=== PATIENT | male | born 1985 | race Asian ===

== ENCOUNTER 2020-04-22 23:48 | Emergency (ER) | payer OTHER ==
[~2020-04-22] VITALS: Ht 188 cm; Wt 68.0 kg
[2020-04-23 00:12] LABS: ABSOLUTE BASOPHILS 0.1 thou/uL (0.0-0.2); ABSOLUTE EOSINOPHILS 0.2 thou/uL (0.0-0.7); ABSOLUTE LYMPHOCYTES 2.4 thou/uL (0.8-5.3); ABSOLUTE MONOCYTES 0.7 thou/uL (0.0-1.2); ABSOLUTE NEUTROPHILS 10.6 thou/uL (1.6-8.1); BASOPHILS 0.4 %; EOSINOPHILS 1.2 %; HEMATOCRIT 38.6 % (42.0-52.0); HEMOGLOBIN 12.8 gm/dL (14.0-18.0); LYMPHOCYTES 17.4 %; MCHC 33.1 g/dL (28.0-37.0); MCV 87.6 fL (80.0-100.0); MONOCYTES 4.7 %; MPV 9.9 fl. (7.2-11.1); NUCLEATED RBCS 0 /100WBC; PLATELET COUNT* 246 thou/uL (150-400); POLYS 76.3 %; RDW-CV 13.5 % (10.5-14.5); WBC 13.9 thou/uL (4.0-11.0)
[2020-04-23 00:16] LABS: CALCIUM 9.1 mg/dL (8.5-10.1); CREATININE 0.7 mg/dL (0.6-1.3); POTASSIUM 3.4 mmol/L (3.5-5.1)
[2020-04-23 00:27] LABS: MAGNESIUM 1.9 mg/dL (1.8-2.4); TOTAL BILIRUBIN 0.3 mg/dL (<0.1-1.0); TOTAL PROTEIN 8.8 g/dL (6.4-8.2)
[2020-04-23] MEDS ORDERED: ZPAK PO (01:20)
[2020-04-23 01:33] VITALS: BP 158/90
--- NOTE | 2020-04-23 16:13 | EKG ---
[place] [address] ELECTROCARDIOGRAM REPORT Name: RUT DESIR Room: [facility]#: [id number] Admission: 04/22/20 Attend Phys: Discharge: 04/23/20 Date of : 85 Date of Service: 04/22/20 2353 Report #: [id number] THIS REPORT FOR: //name// [facility] ED Test Date: 2020-04-22 Test Time: 23:53:10 Pat Name: RUT DESIR Department: Room: Gender: Training Personnel Supervisor: : 1985 Requested By: John Mariee Order Number: [id number] MD: Keyur Koehler Measurements Intervals [place] Rate: 97 P: 74 CT: 158 QRS: 58 QRSD: 100 T: 45 QT: 327 QTc: 416 Interpretive Statements Sinus rhythm Probable left ventricular hypertrophy ST elev, probable normal early repol pattern Baseline wander in lead(s) II,V6 No previous ECG available for comparison Electronically Signed On 04-23-2020 16:11:51 CDT by Keyur Koehler [email or web address] <ELECTRONICALLY SIGNED> By: Keyur Koehler MD, [facility] 04/23/20 1611 2353 [id number] Keyur Koehler MD, [facility] /EPI
== END 2020-04-23 01:34 | disposition home or self-care (01) ==
LOC: M.ERS 23:48
PROVIDERS: Emergency Medicine Emergency Medical Services
DX: J18.9 Pneumonia, unspecified organism (principal); I10 Essential (primary) hypertension

== ENCOUNTER 2020-09-17 19:33 | Emergency (ER) | payer OTHER ==
[~2020-09-17] VITALS: Ht 188 cm; Wt 77.1 kg
[~2020-09-17 19:33] MED LIST: ZPAK PO
[2020-09-17 19:43] LABS: URINE BILIRUBIN NEGATIVE (Negative); URINE BLOOD 3+ (Negative); URINE COLOR YELLOW; URINE GLUCOSE-RANDOM NEGATIVE (Negative); URINE KETONES NEGATIVE (Negative); URINE LEUKOCYTES-REFLEX NEGATIVE (Negative); URINE NITRITE-REFLEX NEGATIVE (Negative); URINE PROTEIN NEGATIVE (Negative); URINE SPECIFIC GRAVITY 1.025 (1.005-1.030); URINE UROBILINOGEN 0.2 E.U./dl (0.2-1.0)
[2020-09-17 19:44] LABS: URINE CLARITY HAZY
[2020-09-17 19:50] LABS: SQUAMOUS 0-3 Few /LPF (0-3); URINE RBC >20 Many /HPF (0-2); URINE WBC-REFLEX None Seen /HPF (0-5)
[2020-09-17 19:51] LABS: AMP/METHAMP Negative (Negative); BACTERIA-REFLEX None Seen /HPF (None Seen); BARBITURATES Negative (Negative); BENZODIAZEPINES Negative (Negative); CASTS None Seen /LPF (None Seen); COCAINE Negative (Negative); CRYSTALS None Seen /LPF (None Seen); METHADONE Negative (Negative); OPIATES POSITIVE (Negative); PCP Negative (Negative); THC Negative (Negative)
[2020-09-17 19:57] LABS: ABSOLUTE EOSINOPHILS 0.2 thou/uL (0.0-0.7); ABSOLUTE LYMPHOCYTES 2.4 thou/uL (0.8-5.3); ABSOLUTE MONOCYTES 0.8 thou/uL (0.0-1.2); ABSOLUTE NEUTROPHILS 9.1 thou/uL (1.6-8.1); BASOPHILS 0.2 %; EOSINOPHILS 1.8 %; HEMATOCRIT 40.2 % (42.0-52.0); LYMPHOCYTES 19.2 %; MCH 28.3 pg (26.0-34.0); MCHC 32.4 g/dL (28.0-37.0); MCV 87.2 fL (80.0-100.0); MONOCYTES 6.5 %; MPV 9.1 fl. (7.2-11.1); NUCLEATED RBCS 0 /100WBC; PLATELET COUNT* 251 thou/uL (150-400); POLYS 72.3 %; RBC 4.61 mil/uL (4.50-6.00); RDW-CV 13.7 % (10.5-14.5); WBC 12.6 thou/uL (4.0-11.0)
[2020-09-17 20:02] LABS: CALCIUM 8.9 mg/dL (8.5-10.1); CREATININE 0.6 mg/dL (0.6-1.3); POTASSIUM 3.6 mmol/L (3.5-5.1)
[2020-09-17 20:03] LABS: APTT 30.6 Seconds (25.0-31.3); PROTIME 10.6 Seconds (9.20-11.50)
[2020-09-17 20:16] LABS: ALBUMIN 4.4 g/dL (3.4-5.0); CK-MB MASS 59.8 ng/mL (<0.5-3.6); TOTAL BILIRUBIN 0.4 mg/dL (<0.1-1.0); TOTAL PROTEIN 9.1 g/dL (6.4-8.2)
[2020-09-17 20:44] VITALS: BP 123/78
--- NOTE | 2020-09-19 12:12 | EKG ---
[place] [address] ELECTROCARDIOGRAM REPORT Name: RUT DESIR Room: [facility] [place]#: [id number] Admission: 09/17/20 Attend Phys: Discharge: 09/17/20 Date of : 85 Date of Service: 09/17/201952 Report #: [id number] THIS REPORT FOR: //name// [facility] ED Test Date: 2020-09-17 Test Time: 19:53:46 Pat Name: RUT DESIR Department: Room: Gender: Payroll Consultant: KANDY : 1985 Requested By: Sami Gonzalez Order Number: [id number] MD: Evan Montana Measurements Intervals [place] Rate: 77 P: [place]: QRS: 47 QRSD: 94 T: 51 QT: 366 QTc: 415 Interpretive Statements Normal sinus rhythm Consider left ventricular hypertrophy ST elev, probable normal early repol pattern Compared to ECG 04/22/2020 23:53:10 Sinus rhythm no longer present ST (T wave) deviation still present Electronically Signed On 09-19-2020 12:12:20 CDT by Evan Montana [email or web address] <ELECTRONICALLY SIGNED> By: Jeri Montana MD, FACC 09/19/201211 52 52 Jeri Montana MD, FAC /EPI
== END 2020-09-17 20:45 | disposition home or self-care (01) ==
LOC: M.ERS 19:33
PROVIDERS: Family Medicine
DX: T40.601A Poisoning by unspecified narcotics, accidental (unintentional), initial encounter (principal); R41.82 Altered mental status, unspecified; G89.18 Other acute postprocedural pain; I10 Essential (primary) hypertension; R79.1 Abnormal coagulation profile; Y92.89 Other specified places as the place of occurrence of the external cause